=== PATIENT | male | born 1955 | race Asian ===

== ENCOUNTER 2018-06-08 14:47 | Emergency (ER) | payer OTHER ==
[~2018-06-08] VITALS: Ht 172.7 cm; Wt 56.7 kg
[2018-06-08 15:28] LABS: ABSOLUTE BASOPHILS 0.1 thou/uL (0.0-0.2); ABSOLUTE LYMPHOCYTES 1.5 thou/uL (0.8-5.3); ABSOLUTE MONOCYTES 0.8 thou/uL (0.0-1.2); ABSOLUTE NEUTROPHILS 7.4 thou/uL (1.6-8.1); BASOPHILS 0.5 %; EOSINOPHILS 0.1 %; HEMATOCRIT 42.4 % (42.0-52.0); HEMOGLOBIN 13.7 gm/dL (14.0-18.0); LYMPHOCYTES 15.6 %; MCH 24.7 pg (26.0-34.0); MCHC 32.3 g/dL (28.0-37.0); MCV 76.4 fL (80.0-100.0); MONOCYTES 8.5 %; MPV 9.2 fl. (7.2-11.1); NUCLEATED RBCS 0 /100WBC; PLATELET COUNT* 253 thou/uL (150-400); POLYS 75.3 %; RBC 5.54 mil/uL (4.50-6.00); RDW-CV 14.9 % (10.5-14.5); WBC 9.8 thou/uL (4.0-11.0)
[2018-06-08 15:30] LABS: ANION GAP 4 mmol/L (7-16); BUN 16 mg/dL (7-18); CALCIUM 9.1 mg/dL (8.5-10.1); CHLORIDE 103 mmol/L (98-107); CO2 31 mmol/L (21-32); GLUCOSE 110 mg/dL (70-99); POTASSIUM 3.8 mmol/L (3.5-5.1); SODIUM 138 mmol/L (136-145)
[2018-06-08 15:40] LABS: ALBUMIN 3.7 g/dL (3.4-5.0); ALKALINE PHOSPHATASE 33 U/L (46-116); LIPASE 151 U/L (73-393); SGOT 18 U/L (15-37); SGPT 27 U/L (30-65); TOTAL BILIRUBIN 0.4 mg/dL (<0.1-1.0); TOTAL PROTEIN 7.2 g/dL (6.4-8.2); TROPONIN-I LEVEL <0.06 ng/mL (<0.06)
[2018-06-08] MEDS ORDERED: BENTYL 20 MG TA20 M1 PO (16:32)
[2018-06-08] MEDS ORDERED: ONDANSETRON HCL4 M2 PO (16:32)
[2018-06-08 17:22] LABS: URINE BILIRUBIN NEGATIVE (Negative); URINE BLOOD NEGATIVE (Negative); URINE CLARITY CLEAR; URINE COLOR YELLOW; URINE GLUCOSE-RANDOM NEGATIVE (Negative); URINE KETONES NEGATIVE (Negative); URINE LEUKOCYTES-REFLEX NEGATIVE (Negative); URINE NITRITE-REFLEX NEGATIVE (Negative); URINE PROTEIN NEGATIVE (Negative); URINE SPECIFIC GRAVITY <= 1.005 (1.005-1.030); URINE UROBILINOGEN 0.2 E.U./dl (0.2-1.0)
[2018-06-08 18:10] VITALS: BP 134/81
--- NOTE | 2018-06-09 10:46 | EKG ---
[place] [address] ELECTROCARDIOGRAM REPORT Name: JULYTresaDOTTIE QUILES Room: [facility].#: [id number] Admission: 06/08/18 Attend Phys: Discharge: 06/08/18 Date of : 57 Report #: [id number] THIS REPORT FOR: //name// [facility] ED Test Date: 2018-06-08 Test Time: 18:03:10 Pat Name: DOTTIE BUCIO Department: Room: Gender: Bell Clerk: : 1955 Requested By: Kalie Vazquez Order Number: [id number] MD: Warner Morrison Measurements Intervals [place] Rate: 73 P: 78 DE: 143 QRS: 83 QRSD: 97 T: 66 QT: 400 QTc: 441 Interpretive Statements Sinus rhythm Borderline right axis deviation No previous ECG available for comparison Electronically Signed On 06-09-2018 10:46:40 [employer] by Warner Morrison [email or web address] <ELECTRONICALLY SIGNED> By: Warner Morrison MD, [facility] 06/09/18 1046 1803 1803 Warner Morrison MD, FACC /EPI
== END 2018-06-08 18:10 | disposition home or self-care (01) ==
LOC: M.ERS 14:47
PROVIDERS: Nurse Practitioner Family
DX: K52.9 Noninfective gastroenteritis and colitis, unspecified (principal); T18.2XXA Foreign body in stomach, initial encounter; K76.0 Fatty (change of) liver, not elsewhere classified; K76.9 Liver disease, unspecified; Z88.5 Allergy status to narcotic agent; X58.XXXA Exposure to other specified factors, initial encounter; Y93.89 Activity, other specified; Y92.89 Other specified places as the place of occurrence of the external cause; Y99.8 Other external cause status